=== PATIENT | female | born 1965 | race Caucasian/White ===

== ENCOUNTER 2017-03-29 08:32 | Day surgery (SDC) | payer OTHER ==
[2017-03-28 12:30] VITALS: BMI 30.5
[2017-03-29] VITALS (15 sets, daily range): BP systolic 90–132; BP diastolic 50–80; PULSE 16–66; RESP 16–19; Ht 163.8 cm; Wt 79.4 kg
[~2017-03-29] VITALS: Ht 163.8 cm; Wt 79.4 kg
[~2017-03-29 08:32] MED LIST: CLINDAMYCIN 600 MG/D5W (PMX) 50 ML IVPB ONE; SOD CHLORIDE 0.9% 1,000 ML IV SCH
--- NOTE | 2017-03-29 09:20 | RADRPT ---
PROCEDURE: XR Chest. CLINICAL INDICATION: Preoperative. Hemorrhoids surgery. TECHNIQUE: Single frontal view. COMPARISON: None. FINDINGS: The lungs are clear. The heart size is normal. There is no pleural effusion. There is no pneumothorax. IMPRESSION: 1. Normal chest radiograph. RPTAT: QQ .Cheng Suazo MD, MD Date Time Electronically viewed and signed by .Cheng Suazo MD, on 03/29/2017 09:20 .R/
[2017-03-29] MEDS ORDERED: BUPIVACAINE 0.25% (MPF) 30 ML INJ ONE (11:37)
[2017-03-29] MEDS ORDERED: LIDOCAINE 2% (SDV) 5 ML INJ ONE (11:39)
[2017-03-29] MEDS ORDERED: NEOSTIGMINE 3 MG/3 ML SYRINGE ONE ×2 (11:39→12:13)
[2017-03-29] MEDS ORDERED: PROPOFOL 20 ML ONE (11:39)
[2017-03-29] MEDS ORDERED: ROCURONIUM 50 MG INJ ONE (11:39)
[2017-03-29] MEDS ORDERED: GLYCOPYRROLATE 0.4 MG INJ ONE ×2 (11:39→12:13)
[2017-03-29] MEDS ORDERED: MEPERIDINE 100 MG INJ ONE (11:39)
[2017-03-29] MEDS ORDERED: SUCCINYLCHOLINE CHLORIDE 100 MG/5 ML SYG IV ONE (11:39)
[2017-03-29] MEDS ORDERED: CLINDAMYCIN 600 MG/D5W (PMX) 50 ML IVPB ONE (11:51)
[2017-03-29] MEDS ORDERED: METOCLOPRAMIDE 10 MG INJ ONE (12:13)
[2017-03-29] MEDS ORDERED: ONDANSETRON 4 MG INJ ONE (12:13)
[2017-03-29] MEDS ORDERED: HYDROCODONE/APAP (5/325) TAB PO ONE (12:30)
--- NOTE | 2017-03-29 12:34 | OPR ---
Date/Time of Note Date/Time of Note DATE: 03/29/17 TIME: 12:29 Operative Report Procedure Date: Mar 29, 2017 Preoperative Diagnosis internal and external hemorrhoids and anterior perianal mass Postoperative Diagnosis same Operation Performed 1. internal and external complex hemorrhoidectomy x 2 2. internal hemorrhoids artery ligation x 2 3. anterior perianal mass resections 2 cm 4. rigid sigmoidoscopy 5. therapeutic injection of subcutaneous marcaine cpt code 38417 Surgeon: Heidi REARDON Anesthesia Type: general Estimated Blood Loss: 10 - 50 ml's Specimens left lateral internal and external hemorrhoids right posterior internal and external hemorrhoids anterior perianal mass Grafts/Implants: none Complications: no Indications This is a 52-year-old female with complex internal/external hemorrhoids in the anterior perianal mass. She also had posterior fissure that had resolved. She requires surgical repair. Risks alternatives benefits and percent were discussed the patient. Patient expresses understanding consents to the operation. Procedure Description Patient is taken to the OR and prepped and draped in usual sterile fashion. Surgical timeout was performed. IV antibiotics given. His initial inspection is performed with rigid sigmoidoscopy. There is no evidence of any masses or lesions the prep was fair. Attention was then paid to the left lateral internal /external hemorrhoidal complex. Hernandes retractor is placed [id number] 3-0 Vicryl suture is used to ligate the internal hemorrhoidal artery in the left lateral aspect. Excisional hemorrhoidectomy was then performed by making a incision from the internal/external hemorrhoid with a 15 blade. Using handheld LigaSure this area is excised. The pedicle was then ligated again with the 3-0 Vicryl suture and tied down. The internal/external hemorrhoidal complex was then excised. Hemostasis established with cautery. Attention was then paid to the right posterior internal/external hemorrhoidal complex. Initially the internal hemorrhoidal artery is ligated with a [id number] 3-0 Vicryl suture. 15 blade is used to excise the internal/external hemorrhoidal complex in the right posterior aspect. This area was then resected using had a LigaSure. Hemostasis established with cautery. The pedicle was then tied down again with the 3-0 Vicryl. Anterior perianal mass was then identified this is excised using 15 blade and cautery. There is good hemostasis in all surgical sites. Therapeutic subcutaneous Marcaine is injected throughout the incisions and also in the anal mucosa. Dry dressings were applied. Heidi REARDON Mar 29, 2017 12:34
[2017-03-29] MEDS ORDERED: ONDANSETRON 4 MG INJ IV PRN (13:00)
[2017-03-29] MEDS ORDERED: MEPERIDINE 25 MG INJ IV PRN (13:00)
[2017-03-29] MEDS ORDERED: FENTAnyl 50 MCG/ML VIAL IV PRN ×3 (13:00)
[2017-03-29] MEDS ORDERED: hydrALAzine 20 MG INJ IV PRN (13:00)
[2017-03-29] MEDS ORDERED: EPHEDrine SULFATE 50 MG/5 ML SYG IV PRN (13:00)
[2017-03-29] MEDS ORDERED: DIPHENHYDRAMINE 50 MG INJ IV PRN (13:00)
[2017-03-29] MEDS ORDERED: METOCLOPRAMIDE 10 MG INJ IV PRN (13:00)
[2017-03-29] MEDS ORDERED: MIDAZOLAM 1 MG/ML 2 ML INJ IV PRN (13:00)
[2017-03-29] MEDS ORDERED: HYDROmorphONE (0.2 MG/ML) 10ML SYG IV PRN ×3 (13:00)
[2017-03-29] MEDS ORDERED: LABETALOL HCL 20MG INJ IV PRN (13:00)
[2017-03-29] MEDS ORDERED: OXYCODONE/ACETAMINOPHEN (5/325) TAB PO PRN ×2 (13:00)
[2017-03-29] MEDS ORDERED: DOCUSATE SODIUM 250 MG CAP PO SCH (14:00)
--- NOTE | 2017-03-29 15:39 | RADRPT ---
Vent Rate: 64 bpm RR Interval: 0 msec VA Interval: 172 msec QRS Duration: 82 msec QT Interval: 402 msec QTC Interval: 414 msec P-R-T [place]: 66 - 79 - 48 degrees Normal sinus rhythm Normal ECG Electronically Signed By: Leif Vaughn [id number]
== END 2017-03-29 15:00 | disposition home or self-care (01) ==
LOC: SDS 08:32
PROVIDERS: ATTEND Surgery
DX: K64.4 Residual hemorrhoidal skin tags (principal); K64.8 Other hemorrhoids; K62.0 Anal polyp
CPT/HCPCS: 46260; 46922; 71010; 84703; 88302; 88307; 93005; J1170; J2175; J2405; J2710; J2765; Z7512; Z7610; J7999